=== PATIENT | male | born 1980 | race Caucasian/White ===

== ENCOUNTER 2017-04-30 08:07 | Emergency (ER) | payer BC, OTHER ==
--- NOTE | 2017-04-30 08:28 | EDM.PDOC ---
ED HPI GENERAL MEDICAL PROBLEM - General Chief Complaint: Respiratory Problem Stated Complaint: HEAVY BREATHING/PRIOR ARM NUMBNESS Time Seen by Provider: 04/30/17 08:12 Source of Information: Reports: Patient - History of Present Illness INITIAL COMMENTS - FREE TEXT/NARRATIVE: History of present illness: []Patient has been having "heavy breathing" and diffuse swelling for the past 2 weeks. This morning he noted his left arm had numbness and tingling when he woke up which resolved after getting up. He denies any shortness of breath, chest pain or dizziness. He states he has not had any diet changes or changes in urination. He does have a family history of diabetes and high blood pressure. Review of systems: As per history of present illness and below otherwise all systems reviewed and negative. Past medical history: As per history of present illness and as reviewed below otherwise noncontributory. Surgical history: As per history of present illness and as reviewed below otherwise noncontributory. Social history: No reported history of drug or alcohol abuse. Family history: As per history of present illness and as reviewed below otherwise noncontributory. Physical exam: General: Well developed, well nourished in NAD HEENT: Atraumatic, normocephalic, pupils reactive, negative for conjunctival pallor or scleral icterus, mucous membranes moist, throat clear, neck supple, nontender, trachea midline. Lungs: Clear to auscultation, breath sounds equal bilaterally, chest nontender. Heart: S1S2, regular, negative for clicks, rubs, or JVD. Abdomen: Soft, nondistended, nontender. Negative for masses or hepatosplenomegaly. Negative for costovertebral tenderness. Pelvis: Stable nontender. Genitourinary: Deferred. Rectal: Deferred. Extremities: Atraumatic, negative for cords or calf pain. Neurovascular unremarkable. Neuro: Awake, alert, oriented. Cranial nerves II through XII unremarkable. Cerebellum unremarkable. Motor and sensory unremarkable throughout. Exam nonfocal. Diagnostics: []Labs including chemistries, CBC, BNP and d-dimer all negative except for mildly low calcium level. Therapeutics: [] Impression: []Possible sleep apnea, hypocalcemia Plan: []Follow-up PMD obtain a sleep study and further workup for hypocalcemia. Take calcium supplements daily. Definitive disposition and diagnosis as appropriate pending reevaluation and review of above. no pain Pain Score (Numeric/FACES): 0 - Related Data Allergies Allergy/AdvReac Type Severity Reaction Status Date / Time No Known Allergies Allergy Verified 04/30/17 08:11 Home Meds: Home Meds . [No Known Home Meds] 04/30/17 [History] Past Medical History HEENT History: Reports: None Cardiovascular History: Reports: None Respiratory History: Reports: None Gastrointestinal History: Reports: None Genitourinary History: Reports: None Musculoskeletal History: Reports: None Neurological History: Reports: None Psychiatric History: Reports: None Endocrine/Metabolic History: Reports: None Hematologic History: Reports: None Immunologic History: Reports: None Oncologic (Cancer) History: Reports: None Dermatologic History: Reports: None - Infectious Disease History Infectious Disease History: Reports: None - Past Surgical History Head Surgeries/Procedures: Reports: None Musculoskeletal Surgical History: Reports: Other (See Below) Other Musculoskeletal Surgeries/Procedures:: surgery to left arm & knee Social & Family History - Family History Family Medical History: Noncontributory - Tobacco Use Smoking Status *Q: Never Smoker - Caffeine Use Caffeine Use: Reports: Soda - Recreational Drug Use Recreational Drug Use: No ED ROS GENERAL - Review of Systems Review Of Systems: See Below (The history of present illness) ED EXAM, GENERAL - Physical Exam Exam: See Below (See history of present illness) Course - Vital Signs Last Recorded V/S: Last Vital Signs Temp 36.4 C 04/30/17 08:11 Pulse 82 04/30/17 08:11 Resp 18 04/30/17 08:11 BP 139/74 04/30/17 08:11 Pulse Ox - Orders/Labs/Meds Orders: Active Orders 24 hr Category Date Time Status Chest 2V [CR] Stat Exams 04/30/17 08:28 Taken Labs: Laboratory Tests 04/30/17 04/30/17 04/30/17 Range/Units 08:35 08:35 08:35 WBC 8.11 (4.0-11.0) K/uL RBC 4.85 (4.50-5.90) M/uL Hgb 14.6 (13.0-17.0) g/dL Hct 44.2 (38.0-50.0) % MCV 91.1 (80.0-98.0) fL MCH 30.1 (27.0-32.0) pg MCHC 33.0 (31.0-37.0) g/dL RDW Std Deviation 45.6 (28.0-62.0) fl RDW Coeff of Mihai 14 (11.0-15.0) % Plt Count 182 (150-400) K/uL MPV 11.60 (7.40-12.00) fL Neut % (Auto) 65.5 (48.0-80.0) % Lymph % (Auto) 24.3 (16.0-40.0) % [place] % (Auto) 6.5 (0.0-15.0) % Eos % (Auto) 3.6 (0.0-7.0) % Baso % (Auto) 0.1 (0.0-1.5) % Neut # (Auto) 5.3 (1.4-5.7) K/uL Lymph # (Auto) 2.0 (0.6-2.4) K/uL Webb # (Auto) 0.5 (0.0-0.8) K/uL Eos # (Auto) 0.3 (0.0-0.7) K/uL Baso # (Auto) 0.0 (0.0-0.1) K/uL Nucleated RBC % 0.0 /100WBC Nucleated RBCs # 0 K/uL D-Dimer, Quantitative 0.21 (0.0-0.52) mg/LFEU Sodium 139 (136-146) mmol/L Potassium 4.1 (3.5-5.1) mmol/L Chloride 107 (98-110) mmol/L Carbon Dioxide 27 (21-31) mmol/L BUN 16 (6.0-23.0) mg/dL Creatinine 0.9 (0.6-1.5) mg/dL Est Cr Clr Drug Dosing 138.23 mL/min Estimated GFR (MDRD) > 60.0 ml/min Glucose 145 H (60-110) mg/dL Calcium 8.5 L (8.8-10.8) mg/dL Total Bilirubin 0.3 (0.1-1.5) mg/dL AST 27 (5-40) IU/L ALT 39 (8-54) IU/L Alkaline Phosphatase 179 H (40-150) B-Natriuretic Peptide (<100) PG/ML Total Protein 6.8 (6.0-8.0) g/dL Albumin 3.9 (3.5-5.0) g/dL Globulin 2.9 (2.0-3.5) g/dL Albumin/Globulin Ratio 1.3 (1.3-2.8) 04/30/17 Range/Units 08:35 WBC (4.0-11.0) K/uL RBC (4.50-5.90) M/uL Hgb (13.0-17.0) g/dL Hct (38.0-50.0) % MCV (80.0-98.0) fL MCH (27.0-32.0) pg MCHC (31.0-37.0) g/dL RDW Std Deviation (28.0-62.0) fl RDW Coeff of Mihai (11.0-15.0) % Plt Count (150-400) K/uL MPV (7.40-12.00) fL Neut % (Auto) (48.0-80.0) % Lymph % (Auto) (16.0-40.0) % Webb % (Auto) (0.0-15.0) % Eos % (Auto) (0.0-7.0) % Baso % (Auto) (0.0-1.5) % Neut # (Auto) (1.4-5.7) K/uL Lymph # (Auto) (0.6-2.4) K/uL Webb # (Auto) (0.0-0.8) K/uL Eos # (Auto) (0.0-0.7) K/uL Baso # (Auto) (0.0-0.1) K/uL Nucleated RBC % /100WBC Nucleated RBCs # K/uL D-Dimer, Quantitative (0.0-0.52) mg/LFEU Sodium (136-146) mmol/L Potassium (3.5-5.1) mmol/L Chloride (98-110) mmol/L Carbon Dioxide (21-31) mmol/L BUN (6.0-23.0) mg/dL Creatinine (0.6-1.5) mg/dL Est Cr Clr Drug Dosing mL/min Estimated GFR (MDRD) ml/min Glucose (60-110) mg/dL Calcium (8.8-10.8) mg/dL Total Bilirubin (0.1-1.5) mg/dL AST (5-40) IU/L ALT (8-54) IU/L Alkaline Phosphatase (40-150) B-Natriuretic Peptide < 15 (<100) PG/ML Total Protein (6.0-8.0) g/dL Albumin (3.5-5.0) g/dL Globulin (2.0-3.5) g/dL Albumin/Globulin Ratio (1.3-2.8) Departure - Departure Time of Disposition: 09:28 Disposition: Home, Self-Care 01 Condition: Good Clinical Impression: Hypocalcemia Sleep apnea syndrome Qualifiers: Sleep apnea type: unspecified type Qualified Code(s): G47.30 - Sleep apnea, unspecified - Discharge Information Forms: ED Department Discharge Additional Instructions: The following information is given to patients seen in the emergency department who are being discharged to home. This information is to outline your options for follow-up care. We provide all patients seen in our emergency department with a follow-up referral. The need for follow-up, as well as the timing and circumstances, are variable depending upon the specifics of your emergency department visit. If you don't have a primary care physician on staff, we will provide you with a referral. We always advise you to contact your personal physician following an emergency department visit to inform them of the circumstance of the visit and for follow-up with them and/or the need for any referrals to a consulting specialist. The emergency department will also refer you to a specialist when appropriate. This referral assures that you have the opportunity for follow-up care with a specialist. All of these measure are taken in an effort to provide you with optimal care, which includes your follow-up. Under all circumstances we always encourage you to contact your private physician who remains a resource for coordinating your care. When calling for follow-up care, please make the office aware that this follow-up is from your recent emergency room visit. If for any reason you are refused follow-up, please contact the [facility] Emergency Department at and asked to speak to the emergency department charge nurse. [facility] [address] [place] [id number] - My Orders Last 24 Hours: My Active Orders 04/30/17 08:28 Chest 2V [CR] Stat - Assessment/Plan Last 24 Hours: My Active Orders 04/30/17 08:28 Chest 2V [CR] Stat
[2017-04-30 08:58] LABS: CHLORIDE,CL 107 mmol/L (98-110); SODIUM,NA 139 mmol/L (136-146)
[2017-04-30 09:46] VITALS: BP 138/73
--- NOTE | 2017-05-01 12:27 | CR ---
EXAM DATE: 04/30/17 PATIENT'S AGE: 36 Patient: MIR MCPHERSON Facility: [place], [place] Site . Site : 1980 Study: XRay Chest [id number]/16/2017 9:00:18 AM Ordering Physician: Etienne Dickerson Final Report: INDICATION: Exertion old dyspnea; nasal congestion. Comparison: None. Technique: Two-view chest. Findings: Normal size cardiac silhouette. Clear lung navarro without evidence of acute pneumonic infiltrates or CHF. No pneumothorax or pleural effusion. Impression: Negative chest. Dictated by Palma Soares MD @ Apr 30 2017 9:10AM (Electronic Signature) Report Signed by Proxy. [facility]
== END 2017-04-30 09:48 | disposition home or self-care (01) ==
LOC: MW.ED 08:07
DX: E83.51 Hypocalcemia (principal); G47.30 Sleep apnea, unspecified
CPT/HCPCS: 36415; 71020; 71020-26; 80053; 83880; 85025; 85379; 99282; 99284

== ENCOUNTER 2017-05-08 20:34 | Emergency (ER) | payer BC ==
--- NOTE | 2017-05-08 22:29 | EDM.PDOC ---
ED HPI GENERAL MEDICAL PROBLEM - General Chief Complaint: Respiratory Problem Stated Complaint: TROUBLE BREATHING/LUNG ISSUES Time Seen by Provider: 05/08/17 21:59 - History of Present Illness INITIAL COMMENTS - FREE TEXT/NARRATIVE: HISTORY AND PHYSICAL: History of present illness: [The patient is a 36-year-old male who presents with an over one month history of discomfort with breathing and feeling short of breath episodically which he was seen on April 30 here in the ED. At that time he was complaining of diffuse edema which he currently says he does not have anymore. On that ER visit he had labs and a chest x-ray which were normal and he was referred back to primary care and was told to contact the clinic. Due to his work schedule he did not contact the clinic and make a follow-up appointment. The patient states that he has similar symptoms this dull kind of aching sensation when he takes deep breaths which comes and goes and is associated with some shortness of breath. He does not have cough or anterior chest pain no abdominal pain no vomiting no fevers chills urinary complaints stroma any complaints. The patient says he has had a burning sensation along his spine in the thoracic area bilaterally and is worse when he takes a deep breath. This is been going on for the last several days. The patient does not smoke and denies drug use. Review of systems: As per history of present illness and below otherwise all systems reviewed and negative. Past medical history: As per history of present illness and as reviewed below otherwise noncontributory. Surgical history: As per history of present illness and as reviewed below otherwise noncontributory. Social history: No reported history of drug or alcohol abuse. Family history: As per history of present illness and as reviewed below otherwise noncontributory. Physical exam: Gen.: Well-developed overweight male who is nontoxic and speaking clearly in the ED. Vital signs of an reviewed by me. HEENT: Atraumatic, normocephalic, pupils reactive, negative for conjunctival pallor or scleral icterus, mucous membranes moist, throat clear, neck supple, nontender, trachea midline. Lungs: Clear to auscultation, breath sounds equal bilaterally, chest nontender. No worker breathing or sensory muscle use Heart: S1S2, regular rate and rhythm no overt murmurs Abdomen: Soft, nondistended, nontender. Negative for masses or hepatosplenomegaly. Negative for costovertebral tenderness. Pelvis: Stable nontender. Genitourinary: Deferred. Rectal: Deferred. Extremities: Atraumatic, negative for cords or calf pain. Neurovascular unremarkable. No pedal edema or leg asymmetry Neuro: Awake, alert, oriented. Cranial nerves II through XII unremarkable. Cerebellum unremarkable. Motor and sensory unremarkable throughout. Exam nonfocal. Diagnostics: EKG CBC CMP troponin UA d-dimer chest x-ray Therapeutics: [] I discussed with the patient again that we are limited in our workup here and as the symptoms going on for more than 30 days he would need to be followed up in the clinic. We will repeat labs and an x-ray here as well as do an EKG. Impression: Episodic dyspnea chronic etiology unclear Definitive disposition and diagnosis as appropriate pending reevaluation and review of above. back Pain Score (Numeric/FACES): 5 - Related Data Allergies Allergy/AdvReac Type Severity Reaction Status Date / Time No Known Allergies Allergy Verified 05/08/17 22:03 Home Meds: Home Meds . [No Known Home Meds] 04/30/17 [History] Past Medical History HEENT History: Reports: None Cardiovascular History: Reports: None Respiratory History: Reports: None Gastrointestinal History: Reports: None Genitourinary History: Reports: None Musculoskeletal History: Reports: None Neurological History: Reports: None Psychiatric History: Reports: None Endocrine/Metabolic History: Reports: None Hematologic History: Reports: None Immunologic History: Reports: None Oncologic (Cancer) History: Reports: None Dermatologic History: Reports: None - Infectious Disease History Infectious Disease History: Reports: None - Past Surgical History Head Surgeries/Procedures: Reports: None Musculoskeletal Surgical History: Reports: Other (See Below) Other Musculoskeletal Surgeries/Procedures:: surgery to left arm & knee Social & Family History - Family History Family Medical History: Noncontributory - Tobacco Use Smoking Status *Q: Never Smoker Second Hand Smoke Exposure: No - Caffeine Use Caffeine Use: Reports: Soda - Recreational Drug Use Recreational Drug Use: No ED ROS GENERAL - Review of Systems Review Of Systems: ROS reveals no pertinent complaints other than HPI. ED EXAM, GENERAL - Physical Exam Exam: See Below (See dictation) Course - Vital Signs Last Recorded V/S: Last Vital Signs Temp 36.2 C 05/08/17 22:04 Pulse 83 05/08/17 22:04 Resp 18 05/08/17 22:04 BP 128/70 05/08/17 22:04 Pulse Ox 96 05/08/17 22:04 - Orders/Labs/Meds Orders: Active Orders 24 hr Category Date Time Status EKG Documentation Completion [RC] STAT Care 05/08/17 22:25 Active Chest 2V [CR] Stat Exams 05/08/17 22:26 Taken Labs: Laboratory Tests 05/08/17 05/08/17 05/08/17 Range/Units 22:41 22:43 22:43 WBC 9.55 (4.0-11.0) K/uL RBC 4.82 (4.50-5.90) M/uL Hgb 15.1 (13.0-17.0) g/dL Hct 43.6 (38.0-50.0) % MCV 90.5 (80.0-98.0) fL MCH 31.3 (27.0-32.0) pg MCHC 34.6 (31.0-37.0) g/dL RDW Std Deviation 44.8 (28.0-62.0) fl RDW Coeff of Mihai 14 (11.0-15.0) % Plt Count 203 (150-400) K/uL MPV 11.80 (7.40-12.00) fL Neut % (Auto) 62.9 (48.0-80.0) % Lymph % (Auto) 26.8 (16.0-40.0) % [place] % (Auto) 6.5 (0.0-15.0) % Eos % (Auto) 3.7 (0.0-7.0) % Baso % (Auto) 0.1 (0.0-1.5) % Neut # (Auto) 6.0 H (1.4-5.7) K/uL Lymph # (Auto) 2.6 H (0.6-2.4) K/uL [place] # (Auto) 0.6 (0.0-0.8) K/uL Eos # (Auto) 0.4 (0.0-0.7) K/uL Baso # (Auto) 0.0 (0.0-0.1) K/uL Nucleated RBC % 0.0 /100WBC Nucleated RBCs # 0 K/uL D-Dimer, Quantitative < 0.19 (0.0-0.52) mg/LFEU Sodium (136-146) mmol/L Potassium (3.5-5.1) mmol/L Chloride (98-110) mmol/L Carbon Dioxide (21-31) mmol/L BUN (6.0-23.0) mg/dL Creatinine (0.6-1.5) mg/dL Est Cr Clr Drug Dosing mL/min Estimated GFR (MDRD) ml/min Glucose (60-110) mg/dL Calcium (8.8-10.8) mg/dL Total Bilirubin (0.1-1.5) mg/dL AST (5-40) IU/L ALT (8-54) IU/L Alkaline Phosphatase (40-150) Troponin I (0.0-0.29) NG/ML Total Protein (6.0-8.0) g/dL Albumin (3.5-5.0) g/dL Globulin (2.0-3.5) g/dL Albumin/Globulin Ratio (1.3-2.8) Urine Color YELLOW Urine Appearance CLEAR Urine pH 7.0 (5.0-8.0) Ur Specific [place] 1.020 (1.001-1.035) Urine Protein NEGATIVE (NEGATIVE) mg/dL Urine Glucose (UA) NEGATIVE (NEGATIVE) mg/dL Urine Ketones TRACE H (NEGATIVE) mg/dL Urine Occult Blood NEGATIVE (NEGATIVE) Urine Nitrite NEGATIVE (NEGATIVE) Urine Bilirubin NEGATIVE (NEGATIVE) Urine Urobilinogen 0.2 (<2.0) EU/dL Ur Leukocyte Esterase NEGATIVE (NEGATIVE) Urine RBC 0-1 (0-2/HPF) Urine WBC 0-1 (0-5/HPF) Ur Epithelial Cells RARE (NONE-FEW) Urine Bacteria RARE (NEGATIVE) 05/08/17 05/08/17 Range/Units 22:43 22:43 WBC (4.0-11.0) K/uL RBC (4.50-5.90) M/uL Hgb (13.0-17.0) g/dL Hct (38.0-50.0) % MCV (80.0-98.0) fL MCH (27.0-32.0) pg MCHC (31.0-37.0) g/dL RDW Std Deviation (28.0-62.0) fl RDW Coeff of Mihai (11.0-15.0) % Plt Count (150-400) K/uL MPV (7.40-12.00) fL Neut % (Auto) (48.0-80.0) % Lymph % (Auto) (16.0-40.0) % [place] % (Auto) (0.0-15.0) % Eos % (Auto) (0.0-7.0) % Baso % (Auto) (0.0-1.5) % Neut # (Auto) (1.4-5.7) K/uL Lymph # (Auto) (0.6-2.4) K/uL [place] # (Auto) (0.0-0.8) K/uL Eos # (Auto) (0.0-0.7) K/uL Baso # (Auto) (0.0-0.1) K/uL Nucleated RBC % /100WBC Nucleated RBCs # K/uL D-Dimer, Quantitative (0.0-0.52) mg/LFEU Sodium 137 (136-146) mmol/L Potassium 4.0 (3.5-5.1) mmol/L Chloride 100 (98-110) mmol/L Carbon Dioxide 26 (21-31) mmol/L BUN 12 (6.0-23.0) mg/dL Creatinine 1.1 (0.6-1.5) mg/dL Est Cr Clr Drug Dosing 110.02 mL/min Estimated GFR (MDRD) > 60.0 ml/min Glucose 117 H (60-110) mg/dL Calcium 9.1 (8.8-10.8) mg/dL Total Bilirubin 0.3 (0.1-1.5) mg/dL AST 33 (5-40) IU/L ALT 34 (8-54) IU/L Alkaline Phosphatase 155 H (40-150) Troponin I < 0.10 (0.0-0.29) NG/ML Total Protein 8.0 (6.0-8.0) g/dL Albumin 3.9 (3.5-5.0) g/dL Globulin 4.1 H (2.0-3.5) g/dL Albumin/Globulin Ratio 1.0 L (1.3-2.8) Urine Color Urine Appearance Urine pH (5.0-8.0) Ur Specific [place] (1.001-1.035) Urine Protein (NEGATIVE) mg/dL Urine Glucose (UA) (NEGATIVE) mg/dL Urine Ketones (NEGATIVE) mg/dL Urine Occult Blood (NEGATIVE) Urine Nitrite (NEGATIVE) Urine Bilirubin (NEGATIVE) Urine Urobilinogen (<2.0) EU/dL Ur Leukocyte Esterase (NEGATIVE) Urine RBC (0-2/HPF) Urine WBC (0-5/HPF) Ur Epithelial Cells (NONE-FEW) Urine Bacteria (NEGATIVE) Departure - Departure Time of Disposition: 23:56 Disposition: Home, Self-Care 01 Condition: Good Clinical Impression: Dyspnea Qualifiers: Dyspnea type: unspecified Qualified Code(s): R06.00 - Dyspnea, unspecified - Discharge Information Forms: ED Department Discharge Additional Instructions: The following information is given to patients seen in the emergency department who are being discharged to home. This information is to outline your options for follow-up care. We provide all patients seen in our emergency department with a follow-up referral. The need for follow-up, as well as the timing and circumstances, are variable depending upon the specifics of your emergency department visit. If you don't have a primary care physician on staff, we will provide you with a referral. We always advise you to contact your personal physician following an emergency department visit to inform them of the circumstance of the visit and for follow-up with them and/or the need for any referrals to a consulting specialist. The emergency department will also refer you to a specialist when appropriate. This referral assures that you have the opportunity for followup care with a specialist. All of these measure are taken in an effort to provide you with optimal care, which includes your followup. Under all circumstances we always encourage you to contact your private physician who remains a resource for coordinating your care. When calling for followup care, please make the office aware that this follow-up is from your recent emergency room visit. If for any reason you are refused follow-up, please contact the [facility] emergency department at and ask to speak to the emergency department charge nurse. [facility] Primary care- [place] [address] Please call the clinic for further evaluation and care of this problem as we discussed and return to ER as needed and as discussed. If you have any trouble getting an appointment please contact us - My Orders Last 24 Hours: My Active Orders 05/08/17 22:25 EKG Documentation Completion [RC] STAT 05/08/17 22:26 Chest 2V [CR] Stat - Assessment/Plan Last 24 Hours: My Active Orders 05/08/17 22:25 EKG Documentation Completion [RC] STAT 05/08/17 22:26 Chest 2V [CR] Stat
[2017-05-08 23:14] LABS: CHLORIDE,CL 100 mmol/L (98-110); SODIUM,NA 137 mmol/L (136-146)
[2017-05-09 00:06] VITALS: BP 174/80
--- NOTE | 2017-05-09 11:06 | CR ---
EXAM DATE: 05/08/17 PATIENT'S AGE: 36 Patient: MIR MCPHERSON Facility: [place], [place] Site . Site : 1980 Study: XRay Chest [id number]/24/2017 11:11:53 PM Ordering Physician: Haseeb De Luna Final Report: INDICATION: Shortness of breath. CHEST, PA AND LATERAL Upright PA and lateral radiographs of the chest were performed. Comparison: 04/30/2017. The lungs appear clear and there are no pleural effusions. Heart size and pulmonary vasculature appear normal. Visualized bones show no significant findings. IMPRESSION: No acute intrathoracic abnormality identified. PREETI GUTIERRES MD [employer] Dictated by: Pravin Gutierres MD @ 05/08/2017 23:24:07 (Electronic Signature) Report Signed by Proxy. [facility]
== END 2017-05-09 00:15 | disposition home or self-care (01) ==
LOC: MW.ED 20:34
DX: R06.00 Dyspnea, unspecified (principal)
CPT/HCPCS: 36415; 71020; 71020-26; 80053; 81001; 84484; 85025; 85379; 93005; 99282; 99285-25

== ENCOUNTER 2017-12-25 19:44 | Emergency (ER) | payer BC ==
[2017-12-25] MEDS ORDERED: Ketorolac 60 MG/2 ML SDV IM ONE (20:30)
--- NOTE | 2017-12-25 20:36 | EDM.PDOC ---
ED HPI GENERAL MEDICAL PROBLEM - General Chief Complaint: Back Pain or Injury Stated Complaint: RT LEG HURTS Time Seen by Provider: 12/25/17 20:24 - History of Present Illness INITIAL COMMENTS - FREE TEXT/NARRATIVE: HISTORY AND PHYSICAL: History of present illness: The patient is a 37-year-old male with no stated orthopedic or back problems who presents with complaints of right lumbar back pain that started yesterday while at work and when he got home last evening he felt really stiff when he went to bed but didn't think anything of it. The patient does a lot of lifting and moving and heavy labor at work in the [employer]. The patient said he woke and he was much stiffer and had pain in the same area and it was shooting down his leg. He has no bowel or bladder disturbances and no neurosensory changes in his leg and no weakness. The patient states he feels better when he is standing and worse when he is sitting on the area. He has never been diagnosed with any disc problems or sciatica. He is only taking a Tylenol PM for the pain. He has no flank pain no abdominal pain. He has had no recent falls or blows to the area and no trauma history. Review of systems: As per history of present illness and below otherwise all systems reviewed and negative. Past medical history: As per history of present illness and as reviewed below otherwise noncontributory. Surgical history: As per history of present illness and as reviewed below otherwise noncontributory. Social history: No reported history of drug or alcohol abuse. Family history: As per history of present illness and as reviewed below otherwise noncontributory. Physical exam: Gen.: Well-developed well-nourished mildly overweight man who has visible difficulty positioning change and does feel better when he is standing worse when he is sitting on his butt. Vital signs are noted by me HEENT: Atraumatic, normocephalic, negative for conjunctival pallor or scleral icterus, mucous membranes moist, throat clear, neck supple, nontender, trachea midline. Lungs: Clear to auscultation, breath sounds equal bilaterally, chest nontender. Heart: S1S2, regular rate and rhythm no overt murmurs Abdomen: Soft, nondistended, nontender. NABS Negative for costovertebral tenderness. Pelvis: Stable nontender. Genitourinary: Deferred. Rectal: Deferred. Extremities: Atraumatic, negative for cords or calf pain. Neurovascular unremarkable. Full range of motion of all extremities without defects or deficits Neuro: Awake, alert, oriented. Cranial nerves II through XII unremarkable. Cerebellum unremarkable. Motor and sensory unremarkable throughout. Exam nonfocal. Motor is 5/5 in the lower extremities and dorsi and plantar flexion is 5/5 inclusive of the great toe. Inversion and even version of the feet is intact. There is normal tone and normal gait into the ER albeit slowly due to discomfort. Back: There are no midline step-offs tenderness or defects of the thoracic or lumbar spine and there is some reproducible tenderness at the right lumbar back area without specific SI joint pain. Diagnostics: The patient has no recent history of fall or trauma but x-rays were discussed and he would like to defer Therapeutics: Toradol Norflex I discussed with the patient that this would be a slow recovery and that it would give him medications to help with the pain as well as a Medrol Dosepak. I' ve advised him to get follow-up in our clinic as he may need further treatment such as physical therapy or imaging going forward depending on the resolution of the symptoms. He states understanding Impression: Right lumbar back pain/sciatica/muscle strain Definitive disposition and diagnosis as appropriate pending reevaluation and review of above. low back Pain Score (Numeric/FACES): 10 - Related Data Allergies Allergy/AdvReac Type Severity Reaction Status Date / Time No Known Allergies Allergy Verified 12/25/17 20:30 Home Meds: Home Meds . [No Known Home Meds] 04/30/17 [History] Past Medical History HEENT History: Reports: None Cardiovascular History: Reports: None Respiratory History: Reports: None Gastrointestinal History: Reports: None Genitourinary History: Reports: None Musculoskeletal History: Reports: None Neurological History: Reports: None Psychiatric History: Reports: None Endocrine/Metabolic History: Reports: None Hematologic History: Reports: None Immunologic History: Reports: None Oncologic (Cancer) History: Reports: None Dermatologic History: Reports: None - Infectious Disease History Infectious Disease History: Reports: None - Past Surgical History Head Surgeries/Procedures: Reports: None Musculoskeletal Surgical History: Reports: Other (See Below) Other Musculoskeletal Surgeries/Procedures:: surgery to left arm & knee Social & Family History - Family History Family Medical History: Noncontributory - Tobacco Use Smoking Status *Q: Never Smoker Second Hand Smoke Exposure: No - Caffeine Use Caffeine Use: Reports: Soda - Recreational Drug Use Recreational Drug Use: No ED ROS GENERAL - Review of Systems Review Of Systems: ROS reveals no pertinent complaints other than HPI. ED EXAM, GENERAL - Physical Exam Exam: See Below (See dictation) Course - Vital Signs Last Recorded V/S: Last Vital Signs Temp 36.1 C 12/25/17 19:44 Pulse 89 12/25/17 19:44 Resp 18 12/25/17 19:44 BP 114/93 H 12/25/17 19:44 Pulse Ox 95 12/25/17 19:44 - Orders/Labs/Meds Meds: Medications Discontinued Medications Generic Name Dose Route Start Last Admin Trade Name Freq PRN Reason Stop Dose Admin Ketorolac Tromethamine 60 mg 12/25/17 20:30 Toradol IM 12/25/17 20:31 ONETIME ONE Orphenadrine Citrate 60 mg 12/25/17 20:30 Norflex IM 12/25/17 20:31 ONETIME ONE Departure - Departure Time of Disposition: 20:34 Disposition: Home, Self-Care 01 Condition: Good Clinical Impression: Lumbar back pain Sciatica Qualifiers: Laterality: right Qualified Code(s): M54.31 - Sciatica, right side - Discharge Information Referrals: PCP,None [Primary Care Provider] - Additional Instructions: The following information is given to patients seen in the emergency department who are being discharged to home. This information is to outline your options for follow-up care. We provide all patients seen in our emergency department with a follow-up referral. The need for follow-up, as well as the timing and circumstances, are variable depending upon the specifics of your emergency department visit. If you don't have a primary care physician on staff, we will provide you with a referral. We always advise you to contact your personal physician following an emergency department visit to inform them of the circumstance of the visit and for follow-up with them and/or the need for any referrals to a consulting specialist. The emergency department will also refer you to a specialist when appropriate. This referral assures that you have the opportunity for followup care with a specialist. All of these measure are taken in an effort to provide you with optimal care, which includes your followup. Under all circumstances we always encourage you to contact your private physician who remains a resource for coordinating your care. When calling for followup care, please make the office aware that this follow-up is from your recent emergency room visit. If for any reason you are refused follow-up, please contact the [facility] emergency department at and ask to speak to the emergency department charge nurse. [facility] Primary care- Internal Medicine and Family [address] [address] Use ice or heat to area for comfort and take all medications as prescribed. Please connect with our clinic and schedule a follow-up appointment for further care and evaluation as you may need more treatment not available here in the ED. Return to ER as needed and as discussed. Do all activities slowly
[2017-12-26 04:46] VITALS: BP 121/98
== END 2017-12-25 22:04 | disposition home or self-care (01) ==
LOC: MW.ED 19:44
DX: S39.012A Strain of muscle, fascia and tendon of lower back, initial encounter (principal); M54.41 Lumbago with sciatica, right side; Z98.890 Other specified postprocedural states; X50.0XXA Overexertion from strenuous movement or load, initial encounter; Y92.65 Oil rig as the place of occurrence of the external cause; Y99.0 Civilian activity done for income or pay
CPT/HCPCS: 96372; 99283; J1885; J2360; 99284

== ENCOUNTER 2023-05-25 20:48 | Emergency (ER) | payer BC ==
[2023-05-25] MEDS ORDERED: Diphtheria,Pertussis(Acell),Tetanus Vaccine 0.5 ML Syringe IM ONE (21:01)
[2023-05-25 21:36] VITALS: BP 142/80; PULSE 88
== END 2023-05-25 21:36 | disposition home or self-care (01) ==
LOC: MW.ED 20:48
DX: L60.0 Ingrowing nail (principal); L03.032 Cellulitis of left toe; Z23 Encounter for immunization
CPT/HCPCS: 90471; 90715; 99283; 99283-25